=== PATIENT | male | born 1975 | race African-American/Black ===

== ENCOUNTER 2018-12-15 08:50 | Emergency (ER) | payer SELFPAY ==
[2018-12-15 10:25] LABS: Clarity Cloudy (Clear); Leukocyte Negative (Negative); Specific Gravity, Urine 1.025 (1.005-1.030)
[2018-12-15 10:26] LABS: Bilirubin Moderate (Negative); Blood, Urine Moderate (Negative); Glucose, Urine (Dipstick) Negative (Negative); Nitrite Positive (Negative); Protein, Urine (Dipstick) > or equal to 300 mg/dL (Neg-Trace); Urobilinogen > or = 8.0 mg/dL (0.2-1.0)
[2018-12-15 10:31] LABS: Bacteria/HPF 2+ HPF (None Seen); Crystals/HPF None Seen HPF (Negative); Hyaline Casts/LPF NONE SEEN LPF (0-3 Hyaline); Oval Fat Bodies/HPF None Seen HPF (None Seen); Renal Epithelial None Seen HPF (0-3); Sperm/HPF None Seen HPF (None Seen); Squamous Epithelial 0-3 HPF (0-3); Transitional Epithelial NONE SEEN HPF (0-3); Trichomonas/HPF None Seen HPF (None Seen); Yeast-All Forms None Seen HPF (None Seen)
[2018-12-15 10:32] LABS: Other Casts/LPF 4-6 MIXED CASTS LPF (0-3 Hyaline)
--- NOTE | 2018-12-15 18:13 | RAD ---
CHEST TWO VIEWS: 12/15/18 Consolidation is present in the left lower lobe that was not present on a 11/24/09 film. The findings are consistent with pneumonia. The right lung is clear. There are no large effusions. There is no vas cular congestion. The heart is normal in size. The mediastinum appears normal. IMPRESSION: Left lower lobe pneumonia. Code T POS: HOME
== END 2018-12-15 11:11 | disposition home or self-care (01) ==
LOC: BURERS 08:50
DX: J18.1 Lobar pneumonia, unspecified organism (principal); N39.0 Urinary tract infection, site not specified
CPT/HCPCS: 71046; 81003; 81015; 87086

== ENCOUNTER 2020-08-04 11:32 | Emergency (ER) | payer SELFPAY ==
[2020-08-04] MEDS ORDERED: methylPREDNISolone Sod Succ/PF 125 MG/2 ML VIAL ONE (11:58)
[2020-08-04] MEDS ORDERED: Famotidine 20 MG TAB ONE (11:58)
== END 2020-08-04 12:05 | disposition home or self-care (01) ==
LOC: BURERS 11:32
DX: L50.0 Allergic urticaria (principal); F17.290 Nicotine dependence, other tobacco product, uncomplicated
CPT/HCPCS: 96372; 99283; J2930

== ENCOUNTER 2020-08-05 16:24 | Emergency (ER) | payer SELFPAY | END 2020-08-05 18:11 | disposition home or self-care (01) | LOC: BURERS 16:24 | DX: L25.9 Unspecified contact dermatitis, unspecified cause (principal); F17.290 Nicotine dependence, other tobacco product, uncomplicated; Z79.899 Other long term (current) drug therapy | CPT/HCPCS: 99283 ==

== ENCOUNTER 2020-08-14 11:31 | Emergency (ER) | payer SELFPAY | END 2020-08-14 11:55 | disposition home or self-care (01) | LOC: BURERS 11:31 | DX: T65.6X1A Toxic effect of paints and dyes, not elsewhere classified, accidental (unintentional), initial encounter (principal); L23.4 Allergic contact dermatitis due to dyes; F17.290 Nicotine dependence, other tobacco product, uncomplicated | CPT/HCPCS: 99282 ==

== ENCOUNTER 2022-07-18 10:44 | Emergency (ER) | payer SELFPAY ==
[2022-07-18 11:26] LABS: ALT (SGPT) 27 U/L (8-55); AST (SGOT) 23 U/L (5-34); Albumin 4.2 g/dL (3.5-5.0); Alkaline Phosphatase 60 U/L (40-110); Anion Gap 16 mmol/L (10-20); BUN (Urea Nitrogen) 10 mg/dL (8.9-20.6); Bilirubin, Total 0.8 mg/dL (0.2-1.2); Calc. Creatinine Clearance 0 mL/min (70-130); Calcium 8.7 mg/dL (7.8-10.44); Carbon Dioxide 21 mmol/L (22-29); Chloride 105 mmol/L (98-107); Estimated GFR 103; Globulin 3.3 g/dL (2.4-3.5); Glucose 124 mg/dL (70-105); Potassium 3.6 mmol/L (3.5-5.1); Protein, Total 7.5 g/dL (6.0-8.3); Sodium 138 mmol/L (136-145)
[2022-07-18] MEDS ORDERED: Ketorolac Tromethamine 30 MG/ML VIAL ONE (11:28)
[2022-07-18 11:29] LABS: Mean Corpuscular HGB CONC 34.4 g/dL (32.0-36.0); Mean Corpuscular Hemoglobin 29.1 pg (27.0-31.0); Mean Corpuscular Volume 84.6 fL (78.0-98.0); Mean Platelet Volume 6.7 fL (7.4-10.4); Platelet Count 284 thou/uL (130-400); RBC Distribution Width 12.6 % (11.5-14.5); Red Blood Cell (RBC) Count 5.16 mill/uL (4.70-6.10); White Blood Cell (WBC) Count 4.8 thou/uL (4.8-10.8)
[2022-07-18 11:32] LABS: Band 3 % (5-11); Lymphocytes 24 % (21-51); MDiff Complete? YES; Monocytes 10 % (0-10); Neutrophil 56 % (42-75); Reactive Lymphocytes 6 % (0-10)
== END 2022-07-18 12:25 | disposition home or self-care (01) ==
LOC: BURERS 10:44
DX: R09.1 Pleurisy (principal); F17.290 Nicotine dependence, other tobacco product, uncomplicated
CPT/HCPCS: 71046; 80053; 84484; 85025; 85379; 93005; 94760; 96374; J1885